=== PATIENT | female | born 1990 | race American Indian/Alaskan Native ===

== ENCOUNTER 2020-12-28 16:41 | Emergency (ER) | payer SELFPAY ==
--- NOTE | 2020-12-28 17:25 | XRay Report ---
LEFT FOOT 4 VIEWS INDICATION: left foot/pinky toe injury. COMPARISON: No relevant prior imaging study available. FINDINGS: There is a minimally displaced intra-articular fracture at the base of the middle phalanx of the left fifth toe. Adjacent soft tissue swelling is noted. No additional fractures. IMPRESSION: 1. Minimally displaced intra-articular fracture left fifth toe middle phalanx. Signer Name: Scar Perez MD Signed: 12/28/2020 5:20 PM Workstation Name: [id number]
[2020-12-28 17:35] VITALS: BP 105/76
--- NOTE | 2020-12-28 17:39 | Emergency Department Report ---
ED Lower Extremity HPI - General Chief Complaint: Extremity Injury, Lower Stated Complaint: LEFT PINKY TOE INJURY Time Seen by Provider: 12/28/20 16:44 Source: patient Mode of arrival: Ambulatory Limitations: No Limitations - History of Present Illness Initial Comments: This is a 30-year-old female nontoxic, well nourished in appearance, no acute signs of distress presents to the ED with c/o of left toe pain x1 day. Patient stated that she hit her toe against the table yesterday. Patient denies any other trauma. Patient denies any numbness, tingling, fever, chills, nausea, vomiting, chest pain, shortness of breath, headache, stiff neck. Patient denies any joint swelling or joint redness. Patient denies decreased range of motion. Patient stated has decreased gait due to pain. Patient denies any allergies. MD Complaint: other (left 5th toe ) -: days(s) Injury: Toes: Left Type of Injury: blunt Place: home Severity: mild Severity scale (0 -10): 3 Improves With: immobilization Worsens With: weight bearing Context: direct blow Associated Symptoms: able to partially bear weight. denies: snap/pop sensation, swelling, numbness, tingling, unable to bear weight - Related Data Previous Rx's Medication Instructions Recorded Last Taken Type Naproxen 500 mg PO Q12H PRN #12 tablet 12/28/20 Unknown Rx Allergies Allergy/AdvReac Type Severity Reaction Status Date / Time No Known Allergies Allergy Unverified 12/28/20 16:42 ED Review of Systems ROS: Stated complaint: LEFT PINKY TOE INJURY Other details as noted in HPI Comment: All other systems reviewed and negative Constitutional: denies: chills, fever Eyes: denies: eye pain, eye discharge, vision change ENT: denies: ear pain, throat pain Respiratory: denies: cough, shortness of breath, wheezing Cardiovascular: denies: chest pain, palpitations Endocrine: no symptoms reported Gastrointestinal: denies: abdominal pain, nausea, diarrhea Genitourinary: denies: urgency, dysuria, discharge Musculoskeletal: denies: back pain, joint swelling, arthralgia Skin: denies: rash, lesions Neurological: denies: headache, weakness, paresthesias Psychiatric: denies: anxiety, depression Hematological/Lymphatic: denies: easy bleeding, easy bruising ED Past Medical Hx - Past Medical History Previous Medical History?: No - Surgical History Past Surgical History?: No - Social History Smoking Status: Never Smoker Substance Use Type: None - Medications Home Medications: Home Medications Medication Instructions Recorded Confirmed Last Taken Type Naproxen 500 mg PO Q12H PRN #12 tablet 12/28/20 Unknown Rx ED Physical Exam - General Limitations: No Limitations General appearance: alert, in no apparent distress - Head Head exam: Present: atraumatic, normocephalic - Eye Eye exam: Present: normal appearance - Neck Neck exam: Present: normal inspection, full ROM - Respiratory Respiratory exam: Absent: respiratory distress - Cardiovascular Cardiovascular Exam: Present: regular rate - Extremities Exam Extremities exam: Present: full ROM, tenderness, normal capillary refill. Absent: pedal edema, joint swelling, calf tenderness - Expanded Lower Extremity Exam Left Hip exam: Present: normal inspection, full ROM. Absent: tenderness, swelling Upper Leg exam: Present: normal inspection, full ROM. Absent: tenderness, swelling Knee exam: Present: normal inspection, full ROM. Absent: tenderness, swelling Lower Leg exam: Present: normal inspection, full ROM. Absent: tenderness, swelling Ankle exam: Present: normal inspection, full ROM. Absent: tenderness, swelling, abrasion, laceration, ecchymosis, deformity, crepidus, dislocation, erythema, anterior draw sign Foot/Toe exam: Present: full ROM, tenderness, swelling, ecchymosis. Absent: abrasion, laceration, deformity, crepidus, dislocation, erythema, amputation, puncture wound, foreign body, calcaneal tenderness, tenderness at base of 5th metatarsal, nail avulsion, subungual hematoma Neuro vascular tendon exam: Present: no vascular compromise Gait: Positive: observed and limited by pain 1 - pain here - Back Exam Back exam: Present: full ROM - Neurological Exam Neurological exam: Present: alert, oriented X3 - Psychiatric Psychiatric exam: Present: normal affect, normal mood - Skin Skin exam: Present: warm, dry, intact, normal color. Absent: rash ED Course Vital Signs 12/28/20 16:45 Temperature 98.7 F Pulse Rate 88 Respiratory 18 Rate Blood Pressure 105/76 O2 Sat by Pulse 94 Oximetry - Reevaluation(s) Reevaluation #1: 12/28/20 17:38 Patient is speaking in full sentences with no signs of distress noted. ED Lower Extremity MDM - Radiology Data Minimally displaced intra-articular fracture left fifth middle phalanx. Dictated by Scar Ryan. - Medical Decision Making This is a 30-year-old female that presents with left 5th toe fracture. Patient is stable and was examined by me. X-ray has been obtained and dictated by the radiologist. Patient is notified of the x-ray report with noted by the patient. Patient does have normal gait with no tenderness and no joint swelling. No ecchymosis. no joint redness or swelling. Not warm to touch. No signs of cellulites present. Patient received a briseyda splint to 5th and 4th toe and ortho shoe. Patient was instructed to RICE therapy. Patient is discharged with naproxen. At time of discharge, the patient does not seem toxic or ill in a ppearance. No acute signs of distress noted. Patient agrees to discharge treatment plan of care. No further questions noted by the patient. Critical care attestation.: If time is entered above; I have spent that time in minutes in the direct care of this critically ill patient, excluding procedure time. ED Disposition Clinical Impression: Toe fracture, left Qualifiers: Encounter type: initial encounter Toe: lesser toe Fracture type: closed Phalanx: distal Fracture alignment: displaced Qualified Code(s): S92.532A - Displaced fracture of distal phalanx of left lesser toe(s), initial encounter for closed fracture Disposition: DC- TO HOME OR SELFCARE Is pt being admited?: No Does the pt Need Aspirin: No Condition: Stable Instructions: Toe Fracture, [id number], RICE Therapy for Routine Care of Injuries, [id number] Additional Instructions: Follow-up with a orthopedic doctor in 3-5 days or if symptoms worsen and continue return to emergency room as soon as possible. No physical activity that extremity until cleared by orthopedic doctor Prescriptions: Naproxen 500 mg PO Q12H PRN #12 tablet PRN Reason: Pain , Severe (7-10) Referrals: PRIMARY MD SUPRIYA [Referring] - 3-5 Days HUMA THOMAS MD [Staff Physician] - 3-5 Days Forms: Work/School Release Form(ED) Time of Disposition: 17:42
== END 2020-12-28 18:17 | disposition home or self-care (01) ==
LOC: ED 16:41
DX: S92.532A Displaced fracture of distal phalanx of left lesser toe(s), initial encounter for closed fracture (principal); Z79.899 Other long term (current) drug therapy; W22.8XXA Striking against or struck by other objects, initial encounter; Y93.89 Activity, other specified; Y92.009 Unspecified place in unspecified non-institutional (private) residence as the place of occurrence of the external cause; Y99.8 Other external cause status

== ENCOUNTER 2021-04-26 23:30 | Emergency (ER) | payer SELFPAY ==
--- NOTE | 2021-04-27 00:18 | XRay Report ---
CHEST 2 VIEWS INDICATION / CLINICAL INFORMATION: Chest Pain. FINDINGS: SUPPORT DEVICES: None. HEART / MEDIASTINUM: No significant abnormality. LUNGS / PLEURA: No significant pulmonary or pleural abnormality. No pneumothorax. ADDITIONAL FINDINGS: No significant additional findings. IMPRESSION: 1. No acute findings. Signer Name: Luiz Goldstein MD Signed: 04/27/2021 12:14 AM Workstation Name: [id number]
[2021-04-27 00:52] LABS: Basophils # (Auto) 0.1 K/mm3 (0.0-0.1); Basophils % (Auto) 0.8 % (0.0-1.8); Eosinophils # (Auto) 0.1 K/mm3 (0.0-0.4); Eosinophils % (Auto) 1.1 % (0.0-4.3); Hematocrit 37.1 % (30.3-42.9); Hemoglobin 12.4 gm/dl (10.1-14.3); Lymphocytes # (Auto) 2.5 K/mm3 (1.2-5.4); Lymphocytes % (Auto) 23.3 % (13.4-35.0); Mean Corpuscular HGB Conc 33 % (30-34); Mean Corpuscular Volume 88 fl (79-97); Monocytes # (Auto) 0.7 K/mm3 (0.0-0.8); Monocytes % (Auto) 6.5 % (0.0-7.3); Platelet Count 244 K/mm3 (140-440); Red Blood Count 4.24 M/mm3 (3.65-5.03); Red Cell Distribution Width 14.5 % (13.2-15.2)
[2021-04-27 00:55] LABS: Blood Urea Nitrogen 17 mg/dL (7-17); Hemolysis Index 4
[2021-04-27 00:58] LABS: BUN/Creatinine Ratio 24
--- NOTE | 2021-04-27 04:01 | Emergency Department Report ---
ED General Adult HPI - General Chief complaint: Chest Pain Stated complaint: ABD PAIN/CHEST PAIN Time Seen by Provider: 04/27/21 03:34 Source: patient Mode of arrival: Ambulatory Limitations: No Limitations - History of Present Illness Initial comments: Ms. Wick is a 30 years old female with no significant past medical history. Patient presented to the ER with to complain. First complaint is chest pain that has been going on for many month on and off. Patient described her chest pain as sharp mainly to the left upper chest with no radiation. She denied any shortness of breath, fever or chills. Patient also complaining of lower abdominal pain that started to the last few days. No nausea or vomiting. Severity scale (0 -10): 7 - Related Data Previous Rx's Medication Instructions Recorded Last Taken Type Naproxen 500 mg PO Q12H PRN #12 tablet 12/28/20 Unknown Rx Allergies Allergy/AdvReac Type Severity Reaction Status Date / Time No Known Allergies Allergy Unverified 12/28/20 16:42 ED Review of Systems ROS: Stated complaint: ABD PAIN/CHEST PAIN Other details as noted in HPI Comment: All other systems reviewed and negative Constitutional: denies: chills, fever Respiratory: denies: cough, shortness of breath, wheezing Cardiovascular: chest pain. denies: palpitations, dyspnea on exertion Gastrointestinal: abdominal pain. denies: nausea, vomiting, diarrhea, constipation, hematemesis Musculoskeletal: denies: back pain Neurological: denies: headache, weakness ED Past Medical Hx - Past Medical History Previous Medical History?: No - Surgical History Past Surgical History?: No - Social History Smoking Status: Never Smoker Substance Use Type: None - Medications Home Medications: Home Medications Medication Instructions Recorded Confirmed Last Taken Type Naproxen 500 mg PO Q12H PRN #12 tablet 12/28/20 Unknown Rx ED Physical Exam - General Limitations: No Limitations General appearance: alert, in no apparent distress - Head Head exam: Present: atraumatic, normocephalic, normal inspection - Eye Eye exam: Present: normal appearance - ENT ENT exam: Present: normal exam, normal orophraynx, mucous membranes moist - Neck Neck exam: Present: normal inspection, full ROM. Absent: tenderness, meningismus - Respiratory Respiratory exam: Present: chest wall tenderness - Cardiovascular Cardiovascular Exam: Present: regular rate, normal rhythm, normal heart sounds - GI/Abdominal GI/Abdominal exam: Present: soft, normal bowel sounds. Absent: distended, tenderness, guarding, rebound, rigid, organomegaly, mass, bruit, pulsatile mass, hernia - Extremities Exam Extremities exam: Present: normal inspection, full ROM, normal capillary refill. Absent: tenderness, calf tenderness - Back Exam Back exam: Present: normal inspection, full ROM. Absent: CVA tenderness (R), CVA tenderness (L) - Neurological Exam Neurological exam: Present: alert, oriented X3, CN II-XII intact - Psychiatric Psychiatric exam: Present: normal mood - Skin Skin exam: Present: warm, intact, normal color ED Course Vital Signs 04/26/21 04/27/21 23:47 02:55 Temperature 98.6 F Pulse Rate 84 69 Respiratory 18 12 Rate Blood Pressure 99/62 Blood Pressure 120/76 [Left] O2 Sat by Pulse 98 100 Oximetry ED Medical Decision Making - Lab Data Result diagrams: 04/26/21 23:56 04/26/21 23:56 - EKG Data -: EKG Interpreted by Ma EKG shows normal: sinus rhythm Rate: normal - EKG Data Interpretation: no acute changes - Radiology Data Radiology results: report reviewed - Medical Decision Making Ms. Wick is a 30 years old female with no significant past medical history. Patient presented to the ER with to complain. First complaint is chest pain that has been going on for many month on and off. Patient described her chest pain as sharp mainly to the left upper chest with no radiation. She denied any shortness of breath, fever or chills. Patient also complaining of lower abdominal pain that started to the last few days. No nausea or vomiting. EKG is unremarkable. Labs reviewed and is unremarkable including a negative troponin. D-dimer slightly elevated however patient does not have any clinical evidence of pulmonary embolism with an oxygen saturation of 100%. Critical care attestation.: If time is entered above; I have spent that time in minutes in the direct care of this critically ill patient, excluding procedure time. ED Disposition Clinical Impression: Acute costochondritis, Acute abdominal pain Disposition: - TO HOME OR SELFCARE Is pt being admited?: No Condition: Stable
[2021-04-27 04:33] VITALS: BP 111/71
[2021-04-27 04:58] LABS: Bacteria,Urine 1+ /HPF (Negative); Bilirubin,Urine NEG (Negative); Blood,Urine NEG (Negative); Color,Urine Yellow (Yellow); Mucus,Urine 3+ /HPF; Protein,Urine <15 mg/dL mg/dL (Negative)
--- NOTE | 2021-04-29 14:27 | Electrocardiograph Report ---
[facility] Test Date: 2021-04-26 Test Time: 23:53:29 Pat Name: KEREN HERNANDEZ Department: Room: Gender: F Assembly Line Inspector: MANAGER CHINESE : 1990 Requested By: NATHALIA WHITE Order Number: [id number] Reading MD: Robyn Agrawal Measurements Intervals Seltzer Rate: 75 P: 66 OH: 190 QRS: 54 QRSD: 73 T: 30 QT: 372 QTc: 415 Interpretive Statements Sinus rhythm Poor R wave progress No previous ECG available for comparison Electronically Signed On 04-29-2021 14:26:57 EDT by Robyn Agrawal
== END 2021-04-27 05:48 | disposition home or self-care (01) ==
LOC: ED 23:30
DX: M94.0 Chondrocostal junction syndrome [Tietze] (principal); R10.9 Unspecified abdominal pain; Z79.899 Other long term (current) drug therapy
CPT/HCPCS: 36415; 71046; 80048; 81001; 84484; 85025; 85379; 93005; 99284

== ENCOUNTER 2021-07-05 20:22 | Emergency (ER) | payer SELFPAY ==
[2021-07-05 23:45] VITALS: BP 112/79
[2021-07-05] MEDS ORDERED: ACETAMINOPHEN 500 MG TAB PO ONE (23:56)
--- NOTE | 2021-07-06 00:02 | Emergency Department Report ---
ED General Adult HPI - General Chief complaint: Urogenital-Female Stated complaint: BREAST PAIN Source: patient Mode of arrival: Ambulatory Limitations: No Limitations - History of Present Illness Initial comments: Patient is a 30-year-old -[place] female with no past medical history presents to the ED with complaint of acute onset persistent bilateral breast pain for the last 1 week, worse in the last 2 days. Patient states that the pain is persistent and constant since the onset. Patient states that she has not had a menstrual cycle in 2 months. Patient also states that she is unable to sleep because of persistent severe breast pain. Patient denies heavy lifting, fall, traumatic injury, nausea, vomiting, chest pain, shortness of breath, fever, chills, dysuria, urinary frequency and urgency, back pain, cough, abdominal pain or vaginal bleeding. MD Complaint: Bilateral breast pain -: Sudden, week(s) (1) Location: chest (Bilateral breast pain) Radiation: non-radiation Severity scale (0 -10): 7 Quality: aching, sharp Consistency: constant Improves with: none Worsens with: none Associated Symptoms: denies other symptoms. denies: confusion, chest pain, cough, diaphoresis, fever/chills, headaches, loss of appetite, malaise, nausea/vomiting, rash, seizure, shortness of breath, syncope, weakness Treatments Prior to Arrival: none - Related Data Previous Rx's Medication Instructions Recorded Last Taken Type Naproxen 500 mg PO Q12H PRN #12 tablet 12/28/20 Unknown Rx Ketorolac [Toradol] 10 mg PO Q6H PRN #20 tablet 04/27/21 Unknown Rx Ibuprofen [Motrin] 800 mg PO Q8HR PRN #30 tablet 07/06/21 Unknown Rx Allergies Allergy/AdvReac Type Severity Reaction Status Date / Time No Known Allergies Allergy Unverified 12/28/20 16:42 ED Review of Systems ROS: Stated complaint: BREAST PAIN Other details as noted in HPI Constitutional: denies: chills, fever Eyes: denies: eye pain, eye discharge, vision change ENT: denies: ear pain, throat pain Respiratory: denies: cough, shortness of breath, wheezing Cardiovascular: other (Bilateral breast pain). denies: chest pain, palpitations Endocrine: no symptoms reported Gastrointestinal: denies: abdominal pain, nausea, vomiting, diarrhea Genitourinary: denies: urgency, dysuria, discharge Musculoskeletal: denies: back pain, joint swelling, arthralgia Skin: denies: rash, lesions Neurological: denies: headache, weakness, paresthesias Psychiatric: denies: anxiety, depression Hematological/Lymphatic: denies: easy bleeding, easy bruising ED Past Medical Hx - Social History Smoking Status: Never Smoker Substance Use Type: None - Medications Home Medications: Home Medications Medication Instructions Recorded Confirmed Last Taken Type Naproxen 500 mg PO Q12H PRN #12 tablet 12/28/20 Unknown Rx Ketorolac [Toradol] 10 mg PO Q6H PRN #20 tablet 04/27/21 Unknown Rx Ibuprofen [Motrin] 800 mg PO Q8HR PRN #30 tablet 07/06/21 Unknown Rx ED Physical Exam - General Limitations: No Limitations General appearance: alert, in no apparent distress - Head Head exam: Present: atraumatic, normocephalic, normal inspection - Eye Eye exam: Present: normal appearance, PERRL, EOMI Pupils: Present: normal accommodation - ENT ENT exam: Present: normal exam, normal orophraynx, mucous membranes moist, TM's normal bilaterally, normal external ear exam - Neck Neck exam: Present: normal inspection, full ROM - Respiratory Respiratory exam: Present: normal lung sounds bilaterally, chest wall tenderness (Palpable bilateral breast tenderness), other (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 Absent: respiratory distress, wheezes, rales, rhonchi, accessory muscle use, decreased breath sounds, prolonged expiratory - Cardiovascular Cardiovascular Exam: Present: regular rate, normal rhythm, normal heart sounds. Absent: systolic murmur, diastolic murmur, rubs, gallop - GI/Abdominal GI/Abdominal exam: Present: soft, normal bowel sounds. Absent: tenderness, guarding, rebound, hyperactive bowel sounds, hypoactive bowel sounds, organomegaly - Extremities Exam Extremities exam: Present: normal inspection, full ROM, normal capillary refill - Back Exam Back exam: Present: normal inspection, full ROM. Absent: tenderness, CVA tenderness (R), CVA tenderness (L), muscle spasm, paraspinal tenderness, vertebral tenderness - Neurological Exam Neurological exam: Present: alert, oriented X3, CN II-XII intact, normal gait, reflexes normal - Psychiatric Psychiatric exam: Present: normal affect, normal mood - Skin Skin exam: Present: warm, dry, intact, normal color. Absent: rash ED Course Vital Signs 07/05/21 23:35 Temperature 98.2 F Pulse Rate 85 Respiratory 18 Rate Blood Pressure 112/79 O2 Sat by Pulse 100 Oximetry ED Medical Decision Making - Medical Decision Making This is a 30-year-old -[place] female with no past medical history presents to the ED with complaint of acute onset persistent bilateral breast pain for the last 1 week, worse in the last 2 days. Patient states that the pain is persistent and constant since the onset. Patient states that she has not had a menstrual cycle in 2 months. Patient also states that she is unable to sleep because of persistent severe breast pain. In the ED, patient is alert and oriented x3 and is not in any distress. Patient was treated for pain in the ED. Urinalysis was unremarkable and a urine hCG test was negative. Patient was therefore discharged home on pain medications and advised to follow-up with HELICOPTER ENGINEER physician in 5 to 7 days for reevaluation. Patient symptoms are likely due to fibrocystic breast changes or fibrocystic breast disease. Patient is advised return to the ED immediately if symptoms get worse. - Differential Diagnosis Fibrocystic breast disease; muscle strain; muscle spasm; Critical care attestation.: If time is entered above; I have spent that time in minutes in the direct care of this critically ill patient, excluding procedure time. ED Disposition Clinical Impression: Fibrocystic breast disease (FCBD) in female Qualifiers: Laterality: unspecified laterality Qualified Code(s): N60.19 - Diffuse cystic mastopathy of unspecified breast Disposition: 01 HOME / SELF CARE / HOMELESS Is pt being admited?: No Does the pt Need Aspirin: No Condition: Stable Instructions: Fibrocystic Breast Changes, [id number] Additional Instructions: Your symptoms are likely due to fibrocystic breast changes or breast disease due to monthly hormonal changes. Therefore take medications with food, drink plenty of fluids and follow-up with your primary care physician or HELICOPTER ENGINEER physician in 5 to 7 days for reevaluation. Consider another mammogram to rule out any life-threatening emergency. Return to the ED immediately if symptoms get worse. Prescriptions: Ibuprofen [Motrin] 800 mg PO Q8HR PRN #30 tablet PRN Reason: Pain , Severe (7-10) Referrals: LINN SARMIENTO MD [Staff Physician] - 3-5 Days Forms: Work/School Release Form(ED) Time of Disposition: 00:02 Print Language: KHMER
[2021-07-06 02:24] LABS: Bilirubin,Urine NEG (Negative); Blood,Urine NEG (Negative); Color,Urine Yellow (Yellow); HCG Qualitative,Urine Negative (Negative); Mucus,Urine 3+ /HPF; Protein,Urine <15 mg/dL mg/dL (Negative); Urobilinogen,Urine < 2.0 mg/dL (<2.0)
== END 2021-07-06 04:13 | disposition home or self-care (01) ==
LOC: ED 20:22
DX: N60.19 Diffuse cystic mastopathy of unspecified breast (principal); Z79.899 Other long term (current) drug therapy
CPT/HCPCS: 81001; 81025